=== PATIENT | female | born 1985 | race Asian ===

== ENCOUNTER 2017-11-04 19:25 | Emergency (ER) | payer OTHER ==
[~2017-11-04] VITALS: Ht 154.9 cm; Wt 84.8 kg
[2017-11-04 19:32] VITALS: BP_SYST 119
[2017-11-04] MEDS ORDERED: NACL 0.9% 1,000 ML IV ONE (20:15)
[2017-11-04] MEDS ORDERED: PROCHLORPERAZINE EDISYLATE 10 MG/2 ML VIAL IVP ONE (20:15)
[2017-11-04 20:17] LABS: BILIRUBIN,URINE NEGATIVE (NEGATIVE); BLOOD, URINE NEGATIVE (NEGATIVE); CLARITY/URINE CLEAR (CLEAR); COLOR,URINE YELLOW (YELLOW); GLUCOSE,URINE NEGATIVE (NEGATIVE); KETONES,URINE NEGATIVE (NEGATIVE); LEUKOCYTE ESTERASE ,URINE NEGATIVE (NEGATIVE); NITRITE, URINE NEGATIVE (NEGATIVE); PROTEIN URINE NEGATIVE (NEGATIVE)
[2017-11-04 21:03] LABS: CREATININE 0.85 mg/dL (0.55-1.30); POTASSIUM 3.2 mmol/L (3.5-5.1)
[2017-11-04 21:08] LABS: ALBUMIN 3.4 g/dL (3.4-4.8); TOTAL BILIRUBIN 0.4 mg/dL (0.0-1.0)
[2017-11-04] MEDS ORDERED: POTASSIUM CHLORIDE 10 MEQ TAB.PRT.SR PO ONE (21:15)
[2017-11-04 21:25] LABS: BASOPHILS % (AUTO) 0.4 % (0.0-2.0); EOSINOPHILS # (AUTO) 0.2 K/uL (0.0-0.4); HEMATOCRIT 40.5 % (36-48); HEMOGLOBIN 14.2 g/dL (12.0-16.0); LYMPHOCYTES # (AUTO) 1.4 K/uL (1.0-5.5); LYMPHOCYTES % (AUTO) 25.9 % (20.5-51.5); MEAN CORPUSCULAR HEMOGLOBIN 31 pg (27-31); MEAN CORPUSCULAR HGB CONC 35 % (32-36); MEAN CORPUSCULAR VOLUME 89 fL (79.0-98.0); MONOCYTES # (AUTO) 0.4 K/uL (0.0-1.0); MONOCYTES % (AUTO) 7.5 % (1.7-9.3); NEUTROPHILS # (AUTO) 3.5 K/uL (1.8-7.7); NEUTROPHILS % (AUTO) 63.2 % (40.0-70.0); PLATELET COUNT (AUTO) 234 K/uL (130-430); RED BLOOD CELL COUNT(AUTO) 4.56 MIL/uL (4.2-6.2); RED CELL DISTRIBUTION WIDTH 12.1 % (9.0-15.0); WHITE BLOOD COUNT (AUTO) 5.5 K/uL (4.8-10.8)
[2017-11-04 21:39] VITALS: BP_SYST 123
== END 2017-11-04 21:39 | disposition home or self-care (01) ==
LOC: SED 19:25
DX: K59.00 Constipation, unspecified (principal); E87.6 Hypokalemia; F41.9 Anxiety disorder, unspecified; K56.7 Ileus, unspecified; G89.29 Other chronic pain; M54.2 Cervicalgia; M54.9 Dorsalgia, unspecified; E03.9 Hypothyroidism, unspecified; F43.10 Post-traumatic stress disorder, unspecified; F32.9 Major depressive disorder, single episode, unspecified; Z90.49 Acquired absence of other specified parts of digestive tract; Z90.710 Acquired absence of both cervix and uterus; Z88.5 Allergy status to narcotic agent; Z88.6 Allergy status to analgesic agent
CPT/HCPCS: 36415; 74176; 80053; 81003; 81025; 83690; 85025; 96361; 96374; 99285; J0780; J7030

== ENCOUNTER 2019-10-14 20:07 | Emergency (ER) | payer OTHER ==
[~2019-10-14] VITALS: Ht 152.4 cm; Wt 90.7 kg
[2019-10-14 20:28] VITALS: BP_SYST 157
[2019-10-14] MEDS ORDERED: NACL 0.9% 1,000 ML IV ONE (20:41)
[2019-10-14] MEDS ORDERED: DIPHENHYDRAMINE INJ 50 MG/ML VIAL IVP ONE (20:45)
[2019-10-14] MEDS ORDERED: METOCLOPRAMIDE HCL 10 MG/2 ML VIAL IVP ONE ×2 (20:45→21:45)
[2019-10-14] MEDS ORDERED: KETOROLAC TROMETHAMINE 15 MG VIAL IVP ONE (21:45)
[2019-10-14 22:41] VITALS: BP_SYST 130
== END 2019-10-14 22:41 | disposition home or self-care (01) ==
LOC: SED 20:07
DX: G43.901 Migraine, unspecified, not intractable, with status migrainosus (principal); I10 Essential (primary) hypertension; E03.9 Hypothyroidism, unspecified; Z88.8 Allergy status to other drugs, medicaments and biological substances; Z90.710 Acquired absence of both cervix and uterus
CPT/HCPCS: 96374; 96375; 96376; 99284; J1200; J1885; J2765; J7030

== ENCOUNTER 2020-03-08 12:21 | Emergency (ER) | payer OTHER ==
[~2020-03-08] VITALS: Ht 154.9 cm; Wt 90.7 kg
[2020-03-08 12:42] VITALS: BP_SYST 143
--- NOTE | 2020-03-08 13:42 | NUR ---
Patient to ER bed 07 to gown for evaluation. Side rails up.
--- NOTE | 2020-03-08 13:44 | NUR ---
Patient arrived in the ED c/o severe pelvic, lower back and abdominal pain for the last 3 days. Hystory of endometriosis and ovarian cyst. Denied any chest pain or shortness of breath. Denied any fevers, chills, nausea or vomiting. Patient is alert and oriented x4, respirations even and unlabored, speaking in full sentences, and ambulating with a steady gait. VSS, pain level 10/10 - Taking Percocet for it. Informed of the approximate wait time. Instructed to notify ED staff for any changes in condition or worsening of symptoms while waiting to be seen by an ED provider. Patient verbalized understanding.
--- NOTE | 2020-03-08 13:49 | NUR ---
Urine specimen collected and dipped.
--- NOTE | 2020-03-08 13:54 | NUR ---
ER Dr. Villar at bedside examining patient.
[2020-03-08] MEDS ORDERED: NACL 0.9% 1,000 ML IV ONE (14:04)
[2020-03-08] MEDS ORDERED: KETOROLAC TROMETHAMINE 30 MG VIAL IVP ONE (14:15)
[2020-03-08] MEDS ORDERED: ONDANSETRON HCL 4 MG/2 ML VIAL IVP ONE (14:15)
[2020-03-08] MEDS ORDERED: DIPHENHYDRAMINE INJ 50 MG/ML VIAL IVP ONE (14:15)
--- NOTE | 2020-03-08 14:29 | NUR ---
Patient is taken to Ultrasound, in stable condition.
--- NOTE | 2020-03-08 14:37 | NUR ---
Patient is back from US, in stable condition.
[2020-03-08 14:58] LABS: BASOPHILS % (AUTO) 0.8 % (0.0-2.0); EOSINOPHILS # (AUTO) 0.1 K/uL (0.0-0.4); EOSINOPHILS % (AUTO) 2.2 % (0.0-4.0); HEMATOCRIT 38.5 % (36-48); LYMPHOCYTES # (AUTO) 1.7 K/uL (1.0-5.5); LYMPHOCYTES % (AUTO) 27.9 % (20.5-51.5); MEAN CORPUSCULAR HEMOGLOBIN 31 pg (27-31); MEAN CORPUSCULAR HGB CONC 34 % (32-36); MEAN CORPUSCULAR VOLUME 92 fL (79.0-98.0); MONOCYTES # (AUTO) 0.4 K/uL (0.0-1.0); MONOCYTES % (AUTO) 6.4 % (1.7-9.3); NEUTROPHILS # (AUTO) 3.7 K/uL (1.8-7.7); NEUTROPHILS % (AUTO) 62.7 % (40.0-70.0); PLATELET COUNT (AUTO) 218 K/uL (130-430); RED BLOOD CELL COUNT(AUTO) 4.17 MIL/uL (4.2-6.2); RED CELL DISTRIBUTION WIDTH 13.6 % (9.0-15.0)
[2020-03-08 16:31] LABS: CALCIUM 8.7 mg/dL (8.4-11.0); CREATININE 0.7 mg/dL (0.55-1.30); POTASSIUM 4.2 mmol/L (3.5-5.1)
[2020-03-08 16:36] LABS: BILIRUBIN,URINE NEGATIVE (NEGATIVE); BLOOD, URINE NEGATIVE (NEGATIVE); CLARITY/URINE CLEAR (CLEAR); COLOR,URINE YELLOW (YELLOW); GLUCOSE,URINE TRACE (NEGATIVE); KETONES,URINE NEGATIVE (NEGATIVE); LEUKOCYTE ESTERASE ,URINE NEGATIVE (NEGATIVE); NITRITE, URINE NEGATIVE (NEGATIVE); PROTEIN URINE NEGATIVE (NEGATIVE); UROBILINOGEN,URINE 0.2 (0.2-1.0)
[2020-03-08 16:37] LABS: ALBUMIN 3.2 g/dL (3.4-4.8); TOTAL BILIRUBIN 0.4 mg/dL (0.0-1.0)
[2020-03-08] MEDS ORDERED: HYDROcodone/ACETAMIN 5-325 MG TAB (NORCO/ VICODIN) ONE (18:25)
[2020-03-08 18:59] VITALS: BP_SYST 143
--- NOTE | 2020-03-08 19:00 | NUR ---
Patient given written and verbal discharge instructions and verbalizes understanding. ER MD discussed with patient the results and treatment provided. Patient in stable condition. ID arm band removed. IV catheter removed intact and dressing applied, no active bleeding. Rx of Ibuprofen given. Patient educated on pain management and to follow up with PMD. Pain Scale 8/10 - informed by the doctor to follow up with her PCP and [facility]. Opportunity for questions provided and answered. Medication side effect fact sheet provided.
--- NOTE | 2020-03-08 19:26 | NUR ---
Patient did not leave and was complaining of pain. Dr. Nichols gave further orders.
--- NOTE | 2020-03-08 20:05 | NUR ---
Patient informed -had hysterectomy last year.
--- NOTE | 2020-03-08 20:28 | NUR ---
Patient went with CT scan with RT and October, RN.
--- NOTE | 2020-03-08 20:37 | NUR ---
Patient came back from CT scan.
--- NOTE | 2020-03-08 22:20 | NUR ---
Patient given written and verbal discharge instructions and verbalizes understanding. ER MD discussed with patient the results and treatment provided. Patient in stable condition. ID arm band removed. NO Rx given. Patient educated on pain management and to follow up with PMD in 2 days. Pain Scale 3/10. Opportunity for questions provided and answered. Medication side effect fact sheet provided.
== END 2020-03-08 18:59 | disposition home or self-care (01) ==
LOC: SED 12:21
DX: N80.9 Endometriosis, unspecified (principal); R10.30 Lower abdominal pain, unspecified; E07.9 Disorder of thyroid, unspecified; F41.9 Anxiety disorder, unspecified; Z88.1 Allergy status to other antibiotic agents; Z88.8 Allergy status to other drugs, medicaments and biological substances
CPT/HCPCS: 36415; 74176; 76856; 80053; 81003; 85025; 96361; 96374; 96375; 99285; J1200; J1885; J2405; J7030

== ENCOUNTER 2020-04-25 15:34 | Emergency (ER) | payer OTHER ==
[~2020-04-25] VITALS: Ht 154.9 cm; Wt 92.1 kg
[2020-04-25 16:17] VITALS: BP_SYST 135
[2020-04-25] MEDS ORDERED: NACL 0.9% 1,000 ML IV ONE (17:45)
[2020-04-25] MEDS ORDERED: PROCHLORPERAZINE EDISYLATE 10 MG/2 ML VIAL IVP ONE (17:45)
[2020-04-25] MEDS ORDERED: DIPHENHYDRAMINE INJ 50 MG/ML VIAL IVP ONE (17:45)
[2020-04-25 19:46] VITALS: BP_SYST 139
== END 2020-04-25 19:47 | disposition home or self-care (01) ==
LOC: SED 15:34
DX: R51.9 Headache, unspecified (principal); R11.0 Nausea; E03.9 Hypothyroidism, unspecified; F41.9 Anxiety disorder, unspecified; K58.9 Irritable bowel syndrome, unspecified; Z90.49 Acquired absence of other specified parts of digestive tract; Z90.710 Acquired absence of both cervix and uterus; Z88.6 Allergy status to analgesic agent
CPT/HCPCS: 81002; 81025; 96361; 96374; 96375; 99284; J0780; J1200; J7030

== ENCOUNTER 2021-04-03 20:22 | Emergency (ER) | payer OTHER ==
[~2021-04-03] VITALS: Ht 154.9 cm; Wt 93.9 kg
[2021-04-03 20:33] VITALS: BP_SYST 128
== END 2021-04-03 21:50 | disposition left against medical advice (07) ==
LOC: SED 20:22
DX: R10.9 Unspecified abdominal pain (principal); Z53.21 Procedure and treatment not carried out due to patient leaving prior to being seen by health care provider